=== PATIENT | female | born 1985 | race Caucasian/White ===

== ENCOUNTER 2017-01-22 09:06 | Emergency (ER) | payer OTHER | END 2017-01-22 12:40 | disposition home or self-care (01) | DX: R06.00 Dyspnea, unspecified (principal); R00.2 Palpitations; J45.909 Unspecified asthma, uncomplicated; G93.5 Compression of brain; Z87.891 Personal history of nicotine dependence ==

== ENCOUNTER 2019-08-27 15:25 | Outpatient (CLI) | payer OTHER | END 2019-08-27 15:26 | disposition critical access hospital (66) | LOC: EMS 15:25 | PROVIDERS: ATTEND Surgery | DX: R45.851 Suicidal ideations (principal) | CPT/HCPCS: A0425; A0429 ==

== ENCOUNTER 2019-08-27 15:45 | Emergency (ER) | payer OTHER ==
[2019-08-27 16:16] LABS: MUDS CUTOFF CONCENTRATIONS CUTOFF CONC BELOW:
[2019-08-27 16:25] LABS: BILIRUBIN,URINE NEGATIVE (NEGATIVE); GLUCOSE, URINE (UA) NEGATIVE (NEGATIVE); KETONES,URINE (UA) NEGATIVE (NEGATIVE); LEUKOCYTE ESTERASE, URINE NEGATIVE (NEGATIVE); NITRITE,URINE NEGATIVE (NEGATIVE); OCCULT BLOOD,URINE NEGATIVE (NEGATIVE); PH,URINE 5.5 PH (5.0-7.5); PROTEIN,URINE NEGATIVE (NEGATIVE); UROBILINOGEN,URINE 0.2 (NORMAL) E.U./dL (NORMAL)
[2019-08-27 16:28] LABS: CLARITY,URINE CLEAR (CLEAR); HCG UR QUAL NEGATIVE
[2019-08-27 16:37] LABS: BASOPHILS % (AUTO) 0.5 %; EOSINOPHILS # (AUTO) 0.1 10^3/uL (0.0-0.7); HGB - HEMOGLOBIN 14.1 g/dL (12.0-16.0); LYMPHOCYTES # (AUTO) 3.7 10^3/uL (1.5-3.5); LYMPHOCYTES % (AUTO) 42.3 %; MEAN CORPUSCULAR HEMOGLOBIN 30.5 pg (27.0-31.0); MEAN CORPUSCULAR HGB CONC 32.7 g/dL (32.0-36.0); MEAN CORPUSCULAR VOLUME 93.1 fL (81.0-99.0); MEAN PLATELET VOLUME 10.1 fL (7.9-10.8); MONOCYTES # (AUTO) 0.5 10^3/uL (0.0-1.0); MONOCYTES % (AUTO) 5.2 %; NEUTROPHILS # (AUTO) 4.5 10^3/uL (1.5-6.6); NEUTROPHILS % (AUTO) 50.8 %; PLT - PLATELET COUNT 319 10^3/uL (130-450); RED BLOOD COUNT 4.63 10^6/uL (4.20-5.40); RED CELL DISTRIBUTION WIDTH 12.4 % (12.0-15.0); WHITE BLOOD COUNT 8.8 x10^3/uL (4.8-10.8)
[2019-08-27 16:37] LABS: AMPHETAMINE SCREEN,URINE NEGATIVE (NEGATIVE); BENZODIAZEPINES SCREEN, URINE NEGATIVE (NEGATIVE); COCAINE SCREEN URINE NEGATIVE (NEGATIVE); METHADONE SCREEN, URINE NEGATIVE (NEGATIVE); METHAMPHETAMINES SCREEN, URINE NEGATIVE (NEGATIVE); OPIATE SCREEN, URINE NEGATIVE (NEGATIVE); OXYCODONE SCREEN, URINE NEGATIVE (NEGATIVE); PROPOXYPHENE SCREEN, URINE NEGATIVE (NEGATIVE); TRICYCLIC ANTIDEPRESSANT,URINE NEGATIVE (NEGATIVE)
--- NOTE | 2019-08-27 16:38 | ED Physician Documentation ---
PD HPI MHE - Stated complaint Stated Complaint: SI - Chief complaint Chief Complaint: MHE - History obtained from History obtained from: Patient - History of Present Illness Primary symptom: Suicide attempt (34-year-old woman with history of PTSD [place] going [place] the bridge today with intent to jump. She did have a suicide attempt a few years ago and was hospitalized in [place]. She denies alcohol or drug use. No other medical issues. Her supportive is at the bedside.) Review of Systems Ten Systems: 10 systems reviewed and negative Constitutional: reports: Reviewed and negative Throat: reports: Reviewed and negative Cardiac: reports: Reviewed and negative Respiratory: reports: Reviewed and negative PD PAST MEDICAL HISTORY - Past Medical History Past Medical History: Yes Cardiovascular: None Respiratory: Asthma - Past Surgical History Past Surgical History: Yes General: Appendectomy HEENT: Tonsil/Adenoidectomy - Present Medications Home Medications: Ambulatory Orders Medication Instructions Recorded Confirmed Albuterol 0 mg NEB Q6HR PRN 01/22/17 01/22/17 - Allergies Allergies/Adverse Reactions: Allergies Allergy/AdvReac Type Severity Reaction Status Date / Time No Known Drug Allergies Allergy Verified 01/22/17 11:57 - Social History Does the pt smoke?: No Smoking Status: Never smoker Does the pt drink ETOH?: No Does the pt have substance abuse?: No - Family History Family history: reports: Non contributory - Immunizations Immunizations are current?: No PD ED PE NORMAL - Vitals Vital signs reviewed: Yes - General General: Alert and oriented X 3, No acute distress - HEENT HEENT: PERRL, EOMI - Neck Neck: No bony TTP, No bruit - Cardiac Cardiac: RRR, No murmur - Respiratory Respiratory: No respiratory distress, Clear bilaterally - Abdomen Abdomen: Soft, Non tender - Back Back: No CVA TTP, No spinal TTP - Derm Derm: Normal color, Warm and dry - Extremities Extremities: No edema, No calf tenderness / cord - Neuro Neuro: Alert and oriented X 3, Normal speech Results - Vitals Vitals: Vital Signs - 24 hr 08/27/19 08/28/19 08/28/19 15:45 12:59 14:44 Temperature 36.7 C Heart Rate 63 97 91 Respiratory 16 18 18 Rate Blood Pressure 124/90 H 137/83 H 121/78 O2 Saturation 100 97 96 Oxygen O2 Source Room air - Labs Labs: Laboratory Tests 08/27/19 08/27/19 08/27/19 16:05 16:05 16:34 WBC 8.8 RBC 4.63 Hgb 14.1 Hct 43.1 MCV 93.1 MCH 30.5 MCHC 32.7 RDW 12.4 Plt Count 319 MPV 10.1 Neut # (Auto) 4.5 Lymph # (Auto) 3.7 H [place] # (Auto) 0.5 Eos # (Auto) 0.1 Baso # (Auto) 0.0 Absolute Nucleated RBC 0.00 Nucleated RBC % 0.0 Sodium Potassium Chloride Carbon Dioxide Anion Gap BUN Creatinine Estimated GFR (MDRD) Glucose Calcium Total Bilirubin AST ALT Alkaline Phosphatase Total Protein Albumin Globulin Albumin/Globulin Ratio Lipase TSH Urine Color YELLOW Urine Clarity CLEAR Urine pH 5.5 Ur Specific [place] 1.015 Urine Protein NEGATIVE Urine Glucose (UA) NEGATIVE Urine Ketones NEGATIVE Urine Occult Blood NEGATIVE Urine Nitrite NEGATIVE Urine Bilirubin NEGATIVE Urine Urobilinogen 0.2 (NORMAL) Ur Leukocyte Esterase NEGATIVE Ur Microscopic Review NOT INDICATED Urine Culture Comments NOT INDICATED Urine HCG, Qual NEGATIVE Salicylates Urine Opiates Screen NEGATIVE Ur Oxycodone Screen NEGATIVE Urine Methadone Screen NEGATIVE Ur Propoxyphene Screen NEGATIVE Acetaminophen Ur Barbiturates Screen NEGATIVE Ur Tricyclics Screen NEGATIVE Ur Phencyclidine Scrn NEGATIVE Ur Amphetamine Screen NEGATIVE U Methamphetamines Scrn NEGATIVE U Benzodiazepines Scrn NEGATIVE Urine Cocaine Screen NEGATIVE U Cannabinoids Screen NEGATIVE Ethyl Alcohol 08/27/19 08/27/19 16:34 16:34 WBC RBC Hgb Hct MCV MCH MCHC RDW Plt Count MPV Neut # (Auto) Lymph # (Auto) [place] # (Auto) Eos # (Auto) Baso # (Auto) Absolute Nucleated RBC Nucleated RBC % Sodium 139 Potassium 3.6 Chloride 101 Carbon Dioxide 25 Anion Gap 13.0 BUN 13 Creatinine 0.7 Estimated GFR (MDRD) 97 Glucose 83 Calcium 10.3 Total Bilirubin 0.5 AST 25 ALT 27 Alkaline Phosphatase 86 Total Protein 7.8 Albumin 5.0 Globulin 2.8 Albumin/Globulin Ratio 1.8 Lipase 27 TSH 0.19 L Urine Color Urine Clarity Urine pH Ur Specific [place] Urine Protein Urine Glucose (UA) Urine Ketones Urine Occult Blood Urine Nitrite Urine Bilirubin Urine Urobilinogen Ur Leukocyte Esterase Ur Microscopic Review Urine Culture Comments Urine HCG, Qual Salicylates < 6.0 Urine Opiates Screen Ur Oxycodone Screen Urine Methadone Screen Ur Propoxyphene Screen Acetaminophen < 10 L Ur Barbiturates Screen Ur Tricyclics Screen Ur Phencyclidine Scrn Ur Amphetamine Screen U Methamphetamines Scrn U Benzodiazepines Scrn Urine Cocaine Screen U Cannabinoids Screen Ethyl Alcohol < 5.0 PD MEDICAL DECISION MAKING - ED course ED course: She arrived after social work was able to evaluate her but seem fairly high risk given the gesture of going [place] the bridge with the intention. She was accepted by Dr. Nolan to [facility]. [place] were completed. She is stable for transport for psychiatric treatment. However I guess the next morning she changed her mind about admission. The social media sr strategy manager did not feel like she was a good joe voluntary anymore and dispatched the DCR. The DCR saw her, did not feel she was detainable and safe for outpatient treatment. Patient did not want to be voluntarily hospitalized. Departure - Departure Disposition: 01 Home, Self Care Clinical Impression: Depressive disorder Condition: Stable Record reviewed to determine appropriate education?: Yes Instructions: ED Depression Comments: Start with a new counselor as soon as possible. Return anytime if you feel like you are in danger or have suicidal thoughts. Discharge Date/Time: 08/28/19 15:14
[2019-08-27 16:55] LABS: ACETAMINOPHEN < 10 ug/mL (10-30); ALBUMIN/GLOBULIN RATIO 1.8 (1.0-2.2); ALKALINE PHOSPHATASE 86 IU/L (42-121); ALT ALANINE AMINOTRANSFERASE 27 IU/L (10-60); AST ASPARTATE AMINOTRANSFERASE 25 IU/L (10-42); BILIRUBIN,TOTAL 0.5 mg/dL (0.2-1.0); BUN - BLOOD UREA NITROGEN 13 mg/dL (6-20); CALCIUM 10.3 mg/dL (8.5-10.3); CARBON DIOXIDE - CO2 25 mmol/L (21-32); CHLORIDE 101 mmol/L (101-111); CREATININE 0.7 mg/dL (0.4-1.0); GFR - MDRD 97 (>89); GLUCOSE 83 mg/dL (70-100); LIPASE 27 U/L (22-51); SALICYLATE < 6.0 mg/dL; SODIUM 139 mmol/L (135-145); TOTAL PROTEIN 7.8 g/dL (6.7-8.2)
[2019-08-28 14:45] VITALS: BP 121/78
== END 2019-08-28 15:14 | disposition home or self-care (01) ==
LOC: EDUNIT# → ED 15:45
DX: F32.9 Major depressive disorder, single episode, unspecified (principal); R45.851 Suicidal ideations; F43.10 Post-traumatic stress disorder, unspecified
CPT/HCPCS: 36415; 80053; 80306; 80307; 80320; 80329; 81001; 81003; 81025; 83690; 84443; 85025; 87086; 99283; 99284

== ENCOUNTER 2019-09-05 03:54 | Outpatient (CLI) | payer OTHER | END 2019-09-05 03:55 | disposition critical access hospital (66) | LOC: EMS 03:54 | PROVIDERS: ATTEND Surgery | DX: R05 Cough (principal); R06.00 Dyspnea, unspecified | CPT/HCPCS: A0425; A0427 ==

== ENCOUNTER 2019-09-05 04:32 | Emergency (ER) | payer OTHER ==
[2019-09-05] MEDS ORDERED: IPRATROPIUM/ALBUTEROL 3 ML NEB INH STA (04:50)
[2019-09-05] MEDS ORDERED: BENZONATATE 100 MG CAPSULE PO STA (04:50)
[2019-09-05] MEDS ORDERED: CHERRY SYRUP 10 ML UDC PO ONE (04:50)
[2019-09-05] MEDS ORDERED: guaiFENesin/CODEINE 5 ML UDC PO STA (04:50)
[2019-09-05] MEDS ORDERED: DEXAMETHASONE 10 MG/ML VIAL PO STA (04:50)
--- NOTE | 2019-09-05 04:51 | ED Physician Documentation ---
PD HPI URI - Stated complaint Stated Complaint: SOA - Chief complaint Chief Complaint: Resp - History obtained from History obtained from: Patient, EMS - History of Present Illness Timing - onset: How many days ago (4) Timing duration: Days (4) Timing details: Gradual onset, Still present (worse the past 1-2 days, with worse asthma exac.) Associated symptoms: Fever, Nasal congestion, Sore throat, Dry cough, Dyspnea. No: NVD, Bilateral edema Contributing factors: COPD / asthma. No: Immunocompromised Improves by: Rest, MDI/nebulizer Worsened by: Activity Similar symptoms before: Diagnosis (asthma exac with URIs.) Recently seen: Not recently seen Review of Systems Constitutional: reports: Myalgias. denies: Fever Nose: reports: Congestion Respiratory: reports: Dyspnea, Cough, Wheezing GI: denies: Vomiting, Diarrhea Skin: denies: Rash PD PAST MEDICAL HISTORY - Past Medical History Cardiovascular: None Respiratory: Asthma - Past Surgical History Past Surgical History: Yes General: Appendectomy HEENT: Tonsil/Adenoidectomy - Present Medications Home Medications: Ambulatory Orders Medication Instructions Recorded Confirmed Albuterol 0 mg NEB Q6HR PRN 01/22/17 01/22/17 Benzonatate [Tessalon Perle] 100 - 200 mg PO TID PRN #30 capsule 09/05/19 Cetirizine [ZyrTEC] 1 PO DAILY 09/05/19 Fluticasone 44 Mcg [Flovent] 2 puffs INH BID 09/05/19 09/05/19 Fluticasone [Flonase] 09/05/19 Ipratropium [Atrovent] 0.5 mg INH Q6H #30 neb 09/05/19 dexAMETHasone [Decadron] 4 mg PO DAILY #9 tablet 09/05/19 guaiFENesin/CODEINE [Robitussin AC] 10 ml PO Q6H PRN #240 ml 09/05/19 - Allergies Allergies/Adverse Reactions: Allergies Allergy/AdvReac Type Severity Reaction Status Date / Time latex Allergy Unknown Verified 09/05/19 04:46 meperidine [From Demerol] Allergy Unknown Verified 09/05/19 04:46 adhesive AdvReac Unknown Verified 09/05/19 04:46 - Social History Does the pt smoke?: No Smoking Status: Never smoker Does the pt drink ETOH?: No Does the pt have substance abuse?: No - Immunizations Immunizations are current?: No PD ED PE NORMAL - Vitals Vital signs reviewed: Yes - General General: Alert and oriented X 3, Well developed/nourished - HEENT HEENT: Pharynx benign - Neck Neck: Supple, no meningeal sign, No adenopathy - Cardiac Cardiac: RRR, No murmur - Respiratory Respiratory: No: Clear bilaterally (wheezing but no coarse sounds) - Abdomen Abdomen: Soft, Non tender - Derm Derm: Normal color, No rash - Extremities Extremities: No tenderness to palpate, Normal ROM s pain, No edema, No calf tenderness / cord - Neuro Neuro: Alert and oriented X 3, No motor deficit, Normal speech Results - Vitals Vitals: Vital Signs - 24 hr 09/05/19 06:26 Temperature 36.7 C Heart Rate 66 Respiratory 18 Rate Blood Pressure 102/62 O2 Saturation 98 Oxygen O2 Source Room air PD MEDICAL DECISION MAKING - ED course Complexity details: re-evaluated patient (She felt better after nebulizer treatment and given medications for her cough and inflammation.), considered differential, d/w patient Departure - Departure Disposition: Home, Self Care Clinical Impression: Exacerbation of asthma Qualifiers: Asthma severity: mild Asthma persistence: intermittent Qualified Code(s): J45.21 - Mild intermittent asthma with (acute) exacerbation Upper respiratory infection Qualifiers: URI type: unspecified URI Qualified Code(s): J06.9 - Acute upper respiratory infection, unspecified Condition: Stable Record reviewed to determine appropriate education?: Yes Instructions: ED URI Viral W Wheezing Follow-Up: DANILO DICK MD [Primary Care Provider] - Prescriptions: Benzonatate [Tessalon Perle] 100 - 200 mg PO TID PRN #30 capsule PRN Reason: Cough dexAMETHasone [Decadron] 4 mg PO DAILY #9 tablet guaiFENesin/CODEINE [Robitussin AC] 10 ml PO Q6H PRN #240 ml PRN Reason: Cough Ipratropium [Atrovent] 0.5 mg INH Q6H #30 neb Comments: Stay well-hydrated. Tylenol or ibuprofen if needed for fevers and pains. Use Decadron steroid as directed with 2 tablets daily for 3 days then 1 tablet daily for 3 days. Continue your albuterol nebulizer or inhaler at home 4 times a day for 7 to 10 days and then extra times as needed. You can add ipratropium (Atrovent) 2 or 3 times daily to that if needed for improved effectiveness. Tessalon if needed for cough. Add codeine cough medicine if needed. Recheck if not improving well over the next few days return sooner if worse. Discharge Date/Time: 09/05/19 06:51
[2019-09-05 06:26] VITALS: BP 102/62
== END 2019-09-05 06:51 | disposition home or self-care (01) ==
LOC: EDUNIT# → ED 04:32
DX: J45.21 Mild intermittent asthma with (acute) exacerbation (principal); J06.9 Acute upper respiratory infection, unspecified
CPT/HCPCS: 94640; 99284; A9270

== ENCOUNTER 2019-12-10 12:37 | Outpatient (CLI) | payer OTHER | END 2019-12-10 12:38 | disposition EMS.NT | LOC: EMS 12:37 | PROVIDERS: ATTEND Surgery | DX: T23.231A Burn of second degree of multiple right fingers (nail), not including thumb, initial encounter (principal); X10.2XXA Contact with fats and cooking oils, initial encounter; Y93.G3 Activity, cooking and baking; Y92.000 Kitchen of unspecified non-institutional (private) residence as the place of occurrence of the external cause ==

== ENCOUNTER 2020-06-22 20:09 | Emergency (ER) | payer OTHER ==
[2020-06-22 20:46] LABS: BASOPHILS # (AUTO) 0.1 10^3/uL (0.0-0.1); BASOPHILS % (AUTO) 0.5 %; EOSINOPHILS # (AUTO) 0.2 10^3/uL (0.0-0.7); EOSINOPHILS % (AUTO) 1.6 %; HGB - HEMOGLOBIN 12.9 g/dL (12.0-16.0); LYMPHOCYTES # (AUTO) 3.8 10^3/uL (1.5-3.5); LYMPHOCYTES % (AUTO) 39.2 %; MEAN CORPUSCULAR HEMOGLOBIN 31.2 pg (27.0-31.0); MEAN CORPUSCULAR HGB CONC 33.3 g/dL (32.0-36.0); MEAN CORPUSCULAR VOLUME 93.7 fL (81.0-99.0); MEAN PLATELET VOLUME 10.5 fL (7.9-10.8); MONOCYTES # (AUTO) 0.6 10^3/uL (0.0-1.0); MONOCYTES % (AUTO) 6.5 %; PLT - PLATELET COUNT 334 10^3/uL (130-450); RED BLOOD COUNT 4.13 10^6/uL (4.20-5.40); RED CELL DISTRIBUTION WIDTH 12.5 % (12.0-15.0); WHITE BLOOD COUNT 9.6 x10^3/uL (4.8-10.8)
[2020-06-22 20:57] LABS: BILIRUBIN,URINE NEGATIVE (NEGATIVE); GLUCOSE, URINE (UA) NEGATIVE (NEGATIVE); KETONES,URINE (UA) NEGATIVE (NEGATIVE); LEUKOCYTE ESTERASE, URINE NEGATIVE (NEGATIVE); NITRITE,URINE NEGATIVE (NEGATIVE); OCCULT BLOOD,URINE TRACE-INTA (NEGATIVE); PH,URINE 6.5 PH (5.0-7.5); PROTEIN,URINE NEGATIVE (NEGATIVE); UROBILINOGEN,URINE 0.2 (NORMAL) E.U./dL (NORMAL)
[2020-06-22 20:59] LABS: CLARITY,URINE CLEAR (CLEAR); HCG UR QUAL NEGATIVE
[2020-06-22 21:00] LABS: ALBUMIN 4.5 g/dL (3.2-5.5); ALBUMIN/GLOBULIN RATIO 1.8 (1.0-2.2); BILIRUBIN,TOTAL 0.5 mg/dL (0.2-1.0); CALCIUM 9.2 mg/dL (8.5-10.3); CREATININE 0.8 mg/dL (0.4-1.0)
--- NOTE | 2020-06-22 21:08 | ED Physician Documentation ---
PD HPI ABD PAIN - Stated complaint Stated Complaint: ABD PX - Chief complaint Chief Complaint: Abd Pain - History obtained from History obtained from: Patient - History of Present Illness Timing - onset: How many weeks ago ("a little over a week ago" (per patient)) Timing - details: Gradual onset, Constant Pain level now: 6 Quality: Pain Location: RLQ Radiation: Other (no radiation) Improved by: Laying still Worsened by: Moving, Position, Palpation Associated symptoms: No: Fever, Nausea, Vomiting, Diarrhea, Constipation Similar symptoms before: Has not had sx before Recently seen: Not recently seen Review of Systems Constitutional: denies: Fever, Chills, Sweats Cardiac: reports: Reviewed and negative Respiratory: reports: Reviewed and negative GI: reports: Abdominal Pain. denies: Nausea, Vomiting, Constipation, Diarrhea : denies: Dysuria, Frequency, Now EGA Musculoskeletal: denies: Back pain PD PAST MEDICAL HISTORY - Past Medical History Cardiovascular: None Respiratory: Asthma - Past Surgical History Past Surgical History: Yes General: Appendectomy HEENT: Tonsil/Adenoidectomy - Present Medications Home Medications: Ambulatory Orders Medication Instructions Recorded Confirmed Albuterol 0 mg NEB Q6HR PRN 01/22/17 01/22/17 Benzonatate [Tessalon Perle] 100 - 200 mg PO TID PRN #30 capsule 09/05/19 Cetirizine [ZyrTEC] 1 PO DAILY 09/05/19 Fluticasone 44 Mcg [Flovent] 2 puffs INH BID 09/05/19 09/05/19 Fluticasone [Flonase] 09/05/19 Ipratropium [Atrovent] 0.5 mg INH Q6H #30 neb 09/05/19 dexAMETHasone [Decadron] 4 mg PO DAILY #9 tablet 09/05/19 guaiFENesin/CODEINE [Robitussin AC] 10 ml PO Q6H PRN #240 ml 09/05/19 - Allergies Allergies/Adverse Reactions: Allergies Allergy/AdvReac Type Severity Reaction Status Date / Time latex Allergy Unknown Verified 06/22/20 20:22 meperidine [From Demerol] Allergy Unknown Verified 06/22/20 20:22 adhesive AdvReac Unknown Verified 06/22/20 20:22 - Social History Does the pt smoke?: No Smoking Status: Never smoker Does the pt drink ETOH?: No Does the pt have substance abuse?: No - Immunizations Immunizations are current?: No PD ED PE NORMAL - Vitals Vital signs reviewed: Yes - General General: Alert and oriented X 3, No acute distress, Well developed/nourished - Cardiac Cardiac: RRR, No murmur - Respiratory Respiratory: No respiratory distress, Clear bilaterally - Abdomen Abdomen: Soft, Non distended PD ED PE EXPANDED - Abdomen Abdomen: Tender to palpation, RLQ Results - Vitals Vitals: Vital Signs - 24 hr 06/22/20 06/22/20 20:15 22:30 Temperature 36.8 C 36.8 C Heart Rate 81 74 Respiratory 17 16 Rate Blood Pressure 117/81 H 101/78 O2 Saturation 99 98 Oxygen O2 Source Room air - Labs Labs: Laboratory Tests 06/22/20 06/22/20 06/22/20 20:35 20:35 20:35 WBC 9.6 RBC 4.13 L Hgb 12.9 Hct 38.7 MCV 93.7 MCH 31.2 H MCHC 33.3 RDW 12.5 Plt Count 334 MPV 10.5 Neut # (Auto) 5.0 Lymph # (Auto) 3.8 H [place] # (Auto) 0.6 Eos # (Auto) 0.2 Baso # (Auto) 0.1 Absolute Nucleated RBC 0.00 Nucleated RBC % 0.0 Sodium 138 Potassium 3.4 L Chloride 100 L Carbon Dioxide 29 Anion Gap 9.0 BUN 15 Creatinine 0.8 Estimated GFR (MDRD) 83 L Glucose 87 Calcium 9.2 Total Bilirubin 0.5 AST 17 ALT 16 Alkaline Phosphatase 72 Total Protein 7.0 Albumin 4.5 Globulin 2.5 Albumin/Globulin Ratio 1.8 Lipase 29 Urine Color YELLOW Urine Clarity CLEAR Urine pH 6.5 Ur Specific [place] 1.020 Urine Protein NEGATIVE Urine Glucose (UA) NEGATIVE Urine Ketones NEGATIVE Urine Occult Blood TRACE-INTA Urine Nitrite NEGATIVE Urine Bilirubin NEGATIVE Urine Urobilinogen 0.2 (NORMAL) Ur Leukocyte Esterase NEGATIVE Ur Microscopic Review NOT INDICATED Urine Culture Comments NOT INDICATED Urine HCG, Qual NEGATIVE - Rads (name of study) pelvic/TV US Radiology: Prelim report reviewed, See rad report CT A/P with IV contrast Radiology: Prelim report reviewed, See rad report PD MEDICAL DECISION MAKING - ED course Complexity details: reviewed results, re-evaluated patient, considered differential, d/w patient Departure - Departure Disposition: 01 Home, Self Care Clinical Impression: Abdominal pain, Ileus Condition: Good Instructions: Ileus Comments: Follow up with your primary care provider, next available appointment for reevaluation. Return to the emergency department at any time for worsening symptoms.
[2020-06-22] MEDS ORDERED: KETOROLAC 30 MG/ML VIAL IVP STA (21:29)
[2020-06-23] MEDS ORDERED: IOVERSOL 320 100 ML VIAL IVP ONE ×2 (00:04→00:51)
[2020-06-23] MEDS ORDERED: ACETAMINOPHEN 325 MG TABLET PO STA (01:55)
[2020-06-23 02:15] VITALS: BP 110/72
--- NOTE | 2020-06-23 09:17 | CT Report ---
PROCEDURE: Abdomen/Pelvis W INDICATIONS: RLQ, right inguinal pain CONTRAST: IV CONTRAST: Optiray 320 ml: 100 PO CONTRAST: *NO PO CONTRAST TECHNIQUE: After the administration of nonionic IV contrast, 5 mm thick sections acquired from the diaphragms to the symphysis. 5 mm thick coronal and sagittal reformats were acquired. For radiation dose reducti on, the following was used: automated exposure control, adjustment of mA and/or kV according to shavon ent size. COMPARISON: Correlation is made with the accompanying pelvic ultrasound, 06/22/2020. Correlation is a lso made with the prior pelvis plain films dated 07/27/2019. FINDINGS: Image quality: Excellent. ABDOMEN: Lung bases: Lung bases are clear. Heart size is normal. Solid organs: Liver and spleen are normal in size and enhancement. Gallbladder wall does not appear thickened. Biliary system is non dilated. Pancreas enhances normally. No adrenal nodules. Kidn eys demonstrate normal size and enhancement, without hydronephrosis. Peritoneum and bowel: In this patient with this given history, scrutiny is given to the right lower quadrant and the appendix. The appendix is not definitely seen. No focal right lower quadrant inflamm atory changes are seen. There is a moderate amount of stool seen within the colon. Forming stool can be seen within several d istal small bowel loops. Bowel loops demonstrate normal wall thickness and caliber. No free fluid or air. Nodes and vessels: No retroperitoneal or mesenteric adenopathy by size criteria. Aorta and inferior vena cava are normal in size. Miscellaneous: A mild fat-containing periumbilical hernia is seen. PELVIS: Genitourinary: Bladder wall thickness is normal. The uterus demonstrates an unremarkable appearance for age. No adnexal masses are seen. Cystic change is seen of the ovaries, which is considered to be within physiologic limits. Miscellaneous: No inguinal hernias or adenopathy. Bones: No suspicious bony lesions. No vertebral body compression fractures. Mild levoconvex scolio tic curvature is seen. IMPRESSION: No appendix can be seen, either normal or abnormal. No focal right lower quadrant inflam matory changes are seen. There is a moderate amount of stool seen within the colon. Please correlate with clinical constipatio n. There is also forming stool seen within this several distal small bowel loops. This is highly sug gestive of stagnant small bowel contents. No findings of bowel obstruction are seen, however. Incidental note is made of: Levoconvex sclerotic curvature Fat-containing peribuccal hernia Reviewed by: Waldemar Buchanan MD on 06/23/2020 8:16 AM [facility] Approved by: Waldemar Buchanan MD on 06/23/2020 8:16 AM [facility] Station ID: [id number]
--- NOTE | 2020-06-23 09:20 | Ultrasound Report ---
PROCEDURE: Pelvic w/Transvag+Doppler Comp INDICATIONS: pelvic pain, R TECHNIQUE: Real-time scanning was performed of the pelvic organs, with image documentation. Additional endovagi nal scanning was necessary due to incomplete visualization of the adnexal and endometrial structures by transabdominal scanning. COMPARISON: Correlation is made with the subsequently performed abdomen and pelvis CT, 06/23/2020 FINDINGS: Transabdominal scanning: Limited scanning through the kidneys shows no hydronephrosis. There is a m ild amount of free pelvic fluid seen, which is considered to be within physiologic limits. Endovaginal scanning: Uterus: Uterus is normal in size at 7.9 x 3.2 x 4.9 cm. The endometrium measures 10 mm in combined thickness. Ovaries: The right ovary measures 3.5 x 2.2 x 3 cm and the left ovary measures 2.8 x 2 x 1.8 cm. No ovarian abnormalities are seen, with less than 12 follicles seen on each side. Normal-appearing cysti c follicles are seen involving each ovary, which are considered to be within physiologic limits. No adnexal masses are seen. Normal-appearing arterial flow is confirmed to each ovary. The technologist noted pelvic pain on the right, when pressure was applied to the left pelvis. IMPRESSION: Pelvic ultrasound within normal limits, with a physiologic amount of free fluid seen. Negative for ovarian torsion. Note: No significant discrepancy from the preliminary report. Reviewed by: Waldemar Buchanan MD on 06/23/2020 8:18 AM [facility] Approved by: Waldemar Buchanan MD on 06/23/2020 8:18 AM [facility] Station ID: [id number]
== END 2020-06-23 02:10 | disposition home or self-care (01) ==
LOC: ED 20:09
DX: K56.7 Ileus, unspecified (principal); K42.9 Umbilical hernia without obstruction or gangrene; Z90.49 Acquired absence of other specified parts of digestive tract
CPT/HCPCS: 36415; 74177; 76830; 76856; 80053; 81003; 81025; 83690; 85025; 93975; 96374; 99283; 99284; A9270; Q9967; 81001; 87086

== ENCOUNTER 2020-08-05 13:01 | Emergency (ER) | payer OTHER ==
--- NOTE | 2020-08-05 13:27 | ED Physician Documentation ---
PD HPI UPPER EXT INJURY - Stated complaint Stated Complaint: LT FINGER INJ - Chief complaint Chief Complaint: Ext Problem - History obtained from History obtained from: Patient - Additonal information Additional information: Right-handed woman hit her left ring finger with a bow staff well exercising in her yard 2 weeks ago and has persistent pain mostly at the PIP and along the radial side of the left fourth finger. Review of Systems Constitutional: reports: Reviewed and negative Throat: reports: Reviewed and negative Cardiac: reports: Reviewed and negative PD PAST MEDICAL HISTORY - Past Medical History Cardiovascular: None Respiratory: Asthma - Past Surgical History Past Surgical History: Yes General: Appendectomy HEENT: Tonsil/Adenoidectomy - Present Medications Home Medications: Ambulatory Orders Medication Instructions Recorded Confirmed Albuterol 0 mg NEB Q6HR PRN 01/22/17 01/22/17 Benzonatate [Tessalon Perle] 100 - 200 mg PO TID PRN #30 capsule 09/05/19 Cetirizine [ZyrTEC] 1 PO DAILY 09/05/19 Fluticasone 44 Mcg [Flovent] 2 puffs INH BID 09/05/19 09/05/19 Fluticasone [Flonase] 09/05/19 Ipratropium [Atrovent] 0.5 mg INH Q6H #30 neb 09/05/19 dexAMETHasone [Decadron] 4 mg PO DAILY #9 tablet 09/05/19 guaiFENesin/CODEINE [Robitussin AC] 10 ml PO Q6H PRN #240 ml 09/05/19 - Allergies Allergies/Adverse Reactions: Allergies Allergy/AdvReac Type Severity Reaction Status Date / Time latex Allergy Unknown Verified 08/05/20 13:17 meperidine [From Demerol] Allergy Unknown Verified 08/05/20 13:17 adhesive AdvReac Unknown Verified 08/05/20 13:17 - Social History Does the pt smoke?: No Smoking Status: Never smoker Does the pt drink ETOH?: No Does the pt have substance abuse?: No - Immunizations Immunizations are current?: No PD ED PE NORMAL - Vitals Vital signs reviewed: Yes - General General: Alert and oriented X 3, No acute distress - Extremities Extremities: Other (She is tender along the radial side of the right PIP and pain with inversion at that level. Mild swelling there. No deformity. NVI at the tip.) - Neuro Neuro: Alert and oriented X 3, Normal speech Results - Vitals Vitals: Vital Signs - 24 hr 08/05/20 13:14 Temperature 37.1 C Heart Rate 72 Respiratory 16 Rate Blood Pressure 122/40 L O2 Saturation 99 Oxygen O2 Source Room air - Rads (name of study) L 4th finger Radiology: EMP read contemporaneously (Nondisp frx prox part mid phalanx.) Procedures - Splint (location) L 4th finger Splint applied by: Physician Type of splint: Metal foam finger splint Other: Patient tolerated well, No complications, Neurovascular intact Departure - Departure Disposition: 01 Home, Self Care Clinical Impression: Finger fracture, left Qualifiers: Encounter type: initial encounter Finger: ring finger Fracture type: closed Phalanx: middle Fracture alignment: nondisplaced Qualified Code(s): S62.655A - Nondisplaced fracture of middle phalanx of left ring finger, initial encounter for closed fracture Condition: Good Record reviewed to determine appropriate education?: Yes Instructions: ED Fx Finger Closed Comments: You have a small avulsion fracture of the middle phalanx of the left ring finger. This should heal just fine with the splinting. Return if worsening.
--- NOTE | 2020-08-05 14:29 | XRAY Report ---
PROCEDURE: Finger(s) LT INDICATIONS: left 4th finger inj TECHNIQUE: AP hand, 3 views of the left fourth/ring finger(s) acquired. COMPARISON: None. FINDINGS: Bones: There is a very small nondisplaced fracture involving the volar base of the fourth finger mid dle phalanx with overlying soft tissue edema. No other fractures or dislocations. No suspicious bony lesions. Soft tissues: No suspicious soft tissue calcifications. IMPRESSION: Nondisplaced fracture involving the volar base of the left fourth finger middle phalanx. Reviewed by: Michael Hinson MD on 08/05/2020 1:27 PM [facility] Approved by: Michael Hinson MD on 08/05/2020 1:27 PM [facility] Station ID: [id number]
[2020-08-05 15:00] VITALS: BP 119/74
== END 2020-08-05 15:10 | disposition home or self-care (01) ==
LOC: ED 13:01
DX: S62.655A Nondisplaced fracture of middle phalanx of left ring finger, initial encounter for closed fracture (principal); W22.8XXA Striking against or struck by other objects, initial encounter; Y93.A9 Activity, other involving cardiorespiratory exercise; Y92.007 Garden or yard of unspecified non-institutional (private) residence as the place of occurrence of the external cause
CPT/HCPCS: 73140; 99283

== ENCOUNTER 2020-08-14 12:43 | Emergency (ER) | payer OTHER ==
[2020-08-14 13:20] LABS: BILIRUBIN,URINE NEGATIVE (NEGATIVE); GLUCOSE, URINE (UA) NEGATIVE (NEGATIVE); KETONES,URINE (UA) NEGATIVE (NEGATIVE); LEUKOCYTE ESTERASE, URINE NEGATIVE (NEGATIVE); NITRITE,URINE NEGATIVE (NEGATIVE); OCCULT BLOOD,URINE NEGATIVE (NEGATIVE); PH,URINE 7.5 PH (5.0-7.5); PROTEIN,URINE NEGATIVE (NEGATIVE); UROBILINOGEN,URINE 0.2 (NORMAL) E.U./dL (NORMAL)
[2020-08-14 13:23] LABS: CLARITY,URINE CLEAR (CLEAR); HCG UR QUAL NEGATIVE
[2020-08-14] MEDS ORDERED: ONDANSETRON 4 MG/2 ML VIAL IVP STA (13:37)
--- NOTE | 2020-08-14 13:39 | ED Physician Documentation ---
History of Present Illness - Stated complaint Stated Complaint: DIZZY/NAUSEA - Chief complaint Chief Complaint: Neuro - Additonal information Additional information: 35-year-old female presents the emergency department with chief complaint of feeling off balance, dizzy and with a headache. She reports that this occurred last night after she took 3 sips of red wine. She denies any vomiting but has been persistently nauseated. She also reports some mild right-sided abdominal pain which is new for her. She does have a history of a known Chiari malformation that was diagnosed a few years ago in [place]. At the time of initial evaluation she had had persistent headaches and nausea. She does report to me that they did recommend surgery for the Chiari malformation but she declined it at that time. She denies that she has headaches right now that are similar to that previous presentation. She has no falls or trauma. Takes only Zyrtec as a medication. She did have a history of heavy alcohol use but quit drinking about 12 years ago. She now only occasionally will have a sip of beer or wine once or twice a month Review of Systems Constitutional: denies: Fever, Chills Eyes: denies: Loss of vision, Photophobia Ears: denies: Loss of hearing, Ear pain, Drainage/discharge, Tinnitus/ringing Nose: denies: Rhinorrhea / runny nose, Congestion Throat: denies: Dental pain / toothache, Oral lesions / sores, Sore throat, Swollen tonsils Cardiac: denies: Chest pain / pressure, Palpitations, Calf pain Respiratory: denies: Dyspnea, Cough GI: reports: Nausea. denies: Abdominal Pain, Abdominal Swelling : reports: Reviewed and negative Skin: reports: Reviewed and negative Musculoskeletal: reports: Reviewed and negative Neurologic: reports: Headache, Other (nausea and vertigo). denies: Generalized weakness, Numbness, Difficulty speaking, Near syncope, Syncope, Seizure, Confused, LOC PD PAST MEDICAL HISTORY - Past Medical History Cardiovascular: None Respiratory: Asthma - Past Surgical History Past Surgical History: Yes General: Appendectomy HEENT: Tonsil/Adenoidectomy - Present Medications Home Medications: Ambulatory Orders Medication Instructions Recorded Confirmed Albuterol 0 mg NEB Q6HR PRN 01/22/17 01/22/17 Benzonatate [Tessalon Perle] 100 - 200 mg PO TID PRN #30 capsule 09/05/19 Cetirizine [ZyrTEC] 1 PO DAILY 09/05/19 Fluticasone 44 Mcg [Flovent] 2 puffs INH BID 09/05/19 09/05/19 Fluticasone [Flonase] 09/05/19 Ipratropium [Atrovent] 0.5 mg INH Q6H #30 neb 09/05/19 dexAMETHasone [Decadron] 4 mg PO DAILY #9 tablet 09/05/19 guaiFENesin/CODEINE [Robitussin AC] 10 ml PO Q6H PRN #240 ml 09/05/19 Ondansetron Odt [Zofran] 4 mg TL Q6H PRN #10 tablet 08/14/20 - Allergies Allergies/Adverse Reactions: Allergies Allergy/AdvReac Type Severity Reaction Status Date / Time latex Allergy Unknown Verified 08/14/20 12:52 meperidine [From Demerol] Allergy Unknown Verified 08/14/20 12:52 adhesive AdvReac Unknown Verified 08/14/20 12:52 - Social History Does the pt smoke?: No Smoking Status: Never smoker Does the pt drink ETOH?: No Does the pt have substance abuse?: No - Immunizations Immunizations are current?: No PD ED PE EXPANDED - General General: Alert, No acute distress, Well developed/nourished - HEENT HEENT: Atraumatic, PERRL, EOMI, Ears normal, Moist mucous membranes, Pharynx normal - Eyes Eyes: PERRL, Other (no nystagmus) - Neck Neck: Supple w/out meningeal sx. No: Adenopathy - Cardiac Cardiac: Regular Rate, Regular Rhythm, Radial strong equal, Pedal strong equal, Cap refill < 2 sec. No: Murmur Present - Respiratory Respiratory: Clear to ausultation nathan. No: Distress, Labored - Abdomen Abdomen: Normal Bowel sounds, Tender to palpation, RUQ - Derm Derm: Normal color. No: Rash - Extremities Extremities: Normal - Neuro Neuro: Alert and Oriented X 3, CNII-XII intact, PERRL, Normal finger nose, Normal speech. No: Nystagmus, Cerebellar nl (off balance with heel toe; the rapidalternating, finger nose and heel schreiber were preserved) Results - Vitals Vitals: Vital Signs - 24 hr 08/14/20 12:47 Temperature 37 C Heart Rate 82 Respiratory 18 Rate Blood Pressure 135/97 H O2 Saturation 100 Oxygen O2 Source Room air - Labs Labs: Laboratory Tests 08/14/20 08/14/20 08/14/20 13:15 13:28 13:28 WBC 6.6 RBC 4.08 L Hgb 12.5 Hct 38.0 MCV 93.1 MCH 30.6 MCHC 32.9 RDW 12.5 Plt Count 305 MPV 10.6 Neut # (Auto) 2.8 Lymph # (Auto) 3.2 Wharton # (Auto) 0.5 Eos # (Auto) 0.1 Baso # (Auto) 0.0 Absolute Nucleated RBC 0.00 Nucleated RBC % 0.0 VBG Total Hgb VBG Oxyhemoglobin VBG Carboxyhemoglobin VBG Methemoglobin Sodium 140 Potassium 3.6 Chloride 99 L Carbon Dioxide 28 Anion Gap 13.0 BUN 7 Creatinine 0.6 Estimated GFR (MDRD) 115 Glucose 96 Calcium 8.9 Total Bilirubin 0.5 AST 16 ALT 14 Alkaline Phosphatase 59 Total Protein 6.6 L Albumin 4.3 Globulin 2.3 Albumin/Globulin Ratio 1.9 Lipase 29 Urine Color YELLOW Urine Clarity CLEAR Urine pH 7.5 Ur Specific Virgie 1.020 Urine Protein NEGATIVE Urine Glucose (UA) NEGATIVE Urine Ketones NEGATIVE Urine Occult Blood NEGATIVE Urine Nitrite NEGATIVE Urine Bilirubin NEGATIVE Urine Urobilinogen 0.2 (NORMAL) Ur Leukocyte Esterase NEGATIVE Ur Microscopic Review NOT INDICATED Urine Culture Comments NOT INDICATED Urine HCG, Qual NEGATIVE Ethyl Alcohol < 5.0 08/14/20 14:49 WBC RBC Hgb Hct MCV MCH MCHC RDW Plt Count MPV Neut # (Auto) Lymph # (Auto) [place]arton # (Auto) Eos # (Auto) Baso # (Auto) Absolute Nucleated RBC Nucleated RBC % VBG Total Hgb 13.1 VBG Oxyhemoglobin 48 L VBG Carboxyhemoglobin 1.6 H VBG Methemoglobin 0.3 Sodium Potassium Chloride Carbon Dioxide Anion Gap BUN Creatinine Estimated GFR (MDRD) Glucose Calcium Total Bilirubin AST ALT Alkaline Phosphatase Total Protein Albumin Globulin Albumin/Globulin Ratio Lipase Urine Color Urine Clarity Urine pH Ur Specific Virgie Urine Protein Urine Glucose (UA) Urine Ketones Urine Occult Blood Urine Nitrite Urine Bilirubin Urine Urobilinogen Ur Leukocyte Esterase Ur Microscopic Review Urine Culture Comments Urine HCG, Qual Ethyl Alcohol - Rads (name of study) CT head Radiology: Final report received (No acute intracranial process. Chiari I malformation) PD MEDICAL DECISION MAKING - ED course Complexity details: reviewed results, re-evaluated patient, considered differential, d/w patient, d/w family ED course: 35-year-old female presents to the emergency department with chief complaint of feeling intoxicated dizzy hung over and with a mild headache. She reports having 3 sips of wine last night. She does have a history of a Chiari I malformation. Today on exam her gait was slightly off balance but there were no focal neuro deficits. Lab work was essentially unremarkable. Urine showed no signs of infection. Head CT did confirm the Chiari I malformation without any other significant findings. Alcohol level was not detectable here in the emerg ency department. On reevaluation with the patient she reported to me that her mom had gone to her house and smelled a lot of gas. The patient states that a few weeks ago her replaced the water heater. She had called the fire department out because she thought she smelled gas but the fire department assured her that there was no leak. At this time we will proceed with carbon monoxide level. If not elevated patient will be stable for discharge home. I have advised her not to return to her home residence however until she is sure that there is no further gas leak at her house and to have the carbon monoxide detectors changed or batteries replaced 1520: Carbon monoxide level is 1.5. This is not high enough to significantly contribute to her symptoms. I have reevaluated the patient she feels markedly improved following the liter of fluids though she remains somewhat nauseated. I will write a prescription for Zofran. Advised to remain away from her home until she can ensure that there is no gas leak and the carbon monoxide detectors are working properly. Emergent return precautions discussed Departure - Departure Disposition: 01 Home, Self Care Clinical Impression: Dizzy, Chiari I malformation Condition: Stable Record reviewed to determine appropriate education?: Yes Prescriptions: Ondansetron Odt [Zofran] 4 mg TL Q6H PRN #10 tablet PRN Reason: Nausea / Vomiting Comments: Altagracia I hope that you are feeling better today. Your labs are all essentially normal. There is no urinary tract infection. Your alcohol level was not elevated. The CT scan does show a persistence of your Chiari I malformation. I am not sure the cause of your dizziness today. It could be the Chiari malformation and I do advise you to continue follow-up with neurosurgery at [place]. However because your mom and you have been smelling gas at your house propane leak could also be contributing to your symptoms even though your carbon monoxide level was not elevated. Please do not return home until you ensure that there is no propane leak at your house and that your carbon monoxide monitors are working properly. Please return to the emergency department if you have any fainting episodes suddenly severe headache uncontrolled vomiting. I have prescribed a limited amount of Zofran to help with your nausea at home
[2020-08-14 13:40] LABS: BASOPHILS % (AUTO) 0.6 %; EOSINOPHILS # (AUTO) 0.1 10^3/uL (0.0-0.7); HGB - HEMOGLOBIN 12.5 g/dL (12.0-16.0); LYMPHOCYTES # (AUTO) 3.2 10^3/uL (1.5-3.5); LYMPHOCYTES % (AUTO) 47.9 %; MEAN CORPUSCULAR HEMOGLOBIN 30.6 pg (27.0-31.0); MEAN CORPUSCULAR HGB CONC 32.9 g/dL (32.0-36.0); MEAN CORPUSCULAR VOLUME 93.1 fL (81.0-99.0); MEAN PLATELET VOLUME 10.6 fL (7.9-10.8); MONOCYTES # (AUTO) 0.5 10^3/uL (0.0-1.0); NEUTROPHILS # (AUTO) 2.8 10^3/uL (1.5-6.6); NEUTROPHILS % (AUTO) 42.3 %; PLT - PLATELET COUNT 305 10^3/uL (130-450); RED BLOOD COUNT 4.08 10^6/uL (4.20-5.40); RED CELL DISTRIBUTION WIDTH 12.5 % (12.0-15.0); WHITE BLOOD COUNT 6.6 x10^3/uL (4.8-10.8)
[2020-08-14 13:49] LABS: ALBUMIN 4.3 g/dL (3.2-5.5); ALBUMIN/GLOBULIN RATIO 1.9 (1.0-2.2); ALKALINE PHOSPHATASE 59 IU/L (42-121); ALT ALANINE AMINOTRANSFERASE 14 IU/L (10-60); AST ASPARTATE AMINOTRANSFERASE 16 IU/L (10-42); BILIRUBIN,TOTAL 0.5 mg/dL (0.2-1.0); BUN - BLOOD UREA NITROGEN 7 mg/dL (6-20); CALCIUM 8.9 mg/dL (8.5-10.3); CARBON DIOXIDE - CO2 28 mmol/L (21-32); CHLORIDE 99 mmol/L (101-111); CREATININE 0.6 mg/dL (0.4-1.0); GLUCOSE 96 mg/dL (70-100); LIPASE 29 U/L (22-51); SODIUM 140 mmol/L (135-145); TOTAL PROTEIN 6.6 g/dL (6.7-8.2)
--- NOTE | 2020-08-14 14:03 | CT Report ---
PROCEDURE: HEAD WO INDICATIONS: headache, off balance, chiari malformation TECHNIQUE: Noncontrast 4.5 mm thick angled axial sections acquired from the foramen magnum to the vertex. For r adiation dose reduction, the following was used: automated exposure control, adjustment of mA and/or kV according to patient size. COMPARISON: None. FINDINGS: Image quality: Excellent. CSF spaces: Basal cisterns are patent. No extra-axial fluid collections. Ventricles are normal in size and shape. Brain: No midline shift. No intracranial masses or hemorrhage. Haynes-white matter interface is norm al. Cerebellar tonsils project below the basion-opisthion line compatible with Chiari I malformation. Skull and face: Calvarium and visualized facial bones are intact, without suspicious lesions. Sinuses: Visualized sinuses and mastoids are clear. IMPRESSION: 1. No acute intracranial disease process. 2. Chiari I malformation. Reviewed by: Maria Luisa Green MD, PhD on 08/14/2020 2:02 PM PST Approved by: Maria Luisa Green MD, PhD on 08/14/2020 2:02 PM PST Station ID: [id number]
[2020-08-14] MEDS ORDERED: SODIUM CHLORIDE 0.9% 1,000 ML IV STA (14:06)
[2020-08-14 15:39] VITALS: BP 106/55
== END 2020-08-14 15:40 | disposition home or self-care (01) ==
LOC: ED 12:43
DX: R42 Dizziness and giddiness (principal); G93.5 Compression of brain; R26.89 Other abnormalities of gait and mobility; R11.0 Nausea; R10.11 Right upper quadrant pain
CPT/HCPCS: 36415; 70450; 80053; 80320; 81001; 81003; 81025; 82375; 83690; 85025; 87086; 96374; 99284

== ENCOUNTER 2021-02-22 13:50 | Emergency (ER) | payer OTHER ==
[2021-02-22] MEDS ORDERED: KETOROLAC 30 MG/ML VIAL IM STA (14:31)
[2021-02-22] MEDS ORDERED: IBUPROFEN 600 MG TABLET PO STA (15:02)
--- NOTE | 2021-02-22 15:03 | ED Physician Documentation ---
PD HPI ABD PAIN - Stated complaint Stated Complaint: FEMALE - Chief complaint Chief Complaint: Abd Pain - History obtained from History obtained from: Patient - Additional information Additional information: 35-year-old woman has been dealing with pelvic cramping more so in the last 4 days. Not necessarily associated with her menses. More recently has developed significant pelvic cramping over the last 4 days. Her menses are due and may be a week. She doubts the possibility of , her has had a vasectomy. She denies bleeding or discharge. Today around 1:00 was getting out of the shower and had severe right pelvic pain for about 5 minutes with clamminess and nausea. Review of Systems Constitutional: denies: Fever, Chills GI: reports: Nausea. denies: Vomiting, Constipation, Diarrhea : denies: Dysuria, Frequency PD PAST MEDICAL HISTORY - Past Medical History Cardiovascular: None Respiratory: Asthma - Past Surgical History Past Surgical History: Yes General: Appendectomy HEENT: Tonsil/Adenoidectomy - Present Medications Home Medications: Ambulatory Orders Medication Instructions Recorded Confirmed Albuterol 1 vial NEB Q6HR PRN 01/22/17 02/22/21 Cetirizine [ZyrTEC] 10 mg PO DAILY 09/05/19 02/22/21 Ipratropium [Atrovent] 0.5 mg INH Q6H #30 neb 09/05/19 02/22/21 - Allergies Allergies/Adverse Reactions: Allergies Allergy/AdvReac Type Severity Reaction Status Date / Time latex Allergy Unknown Verified 08/14/20 12:52 meperidine [From Demerol] Allergy Unknown Verified 08/14/20 12:52 adhesive AdvReac Unknown Verified 08/14/20 12:52 - Social History Does the pt smoke?: No Smoking Status: Never smoker Does the pt drink ETOH?: No Does the pt have substance abuse?: No - Immunizations Immunizations are current?: No PD ED PE NORMAL - Vitals Vital signs reviewed: Yes - General General: Alert and oriented X 3, No acute distress - Abdomen Abdomen: Normal bowel sounds, Soft, Other (Tender in the right pelvis without guarding or rebound. Note she is status post remote appendectomy.) - Back Back: No CVA TTP, No spinal TTP - Derm Derm: Normal color, Warm and dry - Neuro Neuro: Alert and oriented X 3, Normal speech Results - Vitals Vitals: Vital Signs - 24 hr 02/22/21 02/22/21 02/22/21 14:04 15:06 15:30 Temperature 36.8 C Heart Rate 84 76 86 Respiratory 16 16 16 Rate Blood Pressure 131/71 H 126/66 96/66 O2 Saturation 99 99 100 02/22/21 02/22/21 16:10 17:51 Temperature 37.1 C Heart Rate 89 65 Respiratory 16 16 Rate Blood Pressure 115/68 114/72 O2 Saturation 98 100 Oxygen O2 Source Room air - Labs Labs: Laboratory Tests 02/22/21 02/22/21 02/22/21 15:10 15:10 15:15 WBC 8.9 RBC 4.19 L Hgb 12.9 Hct 39.3 MCV 93.8 MCH 30.8 MCHC 32.8 RDW 12.6 Plt Count 314 MPV 10.3 Neut # (Auto) 4.3 Lymph # (Auto) 4.0 H [place] # (Auto) 0.5 Eos # (Auto) 0.1 Baso # (Auto) 0.0 Absolute Nucleated RBC 0.00 Nucleated RBC % 0.0 Sodium 140 Potassium 3.7 Chloride 102 Carbon Dioxide 29 Anion Gap 9.0 BUN 10 Creatinine 0.7 Estimated GFR (MDRD) 96 Glucose 101 H Calcium 9.6 Urine Color YELLOW Urine Clarity HAZY Urine pH 5.5 Ur Specific [place] 1.010 Urine Protein NEGATIVE Urine Glucose (UA) NEGATIVE Urine Ketones NEGATIVE Urine Occult Blood NEGATIVE Urine Nitrite NEGATIVE Urine Bilirubin NEGATIVE Urine Urobilinogen 0.2 (NORMAL) Ur Leukocyte Esterase SMALL H Urine RBC 0-5 Urine WBC 6-10 H Ur Squamous Epith Cells MANY Squamous H Urine Bacteria Many H Urine Culture Comments NOT INDICATED Urine HCG, Qual 02/22/21 15:15 WBC RBC Hgb Hct MCV MCH MCHC RDW Plt Count MPV Neut # (Auto) Lymph # (Auto) [place] # (Auto) Eos # (Auto) Baso # (Auto) Absolute Nucleated RBC Nucleated RBC % Sodium Potassium Chloride Carbon Dioxide Anion Gap BUN Creatinine Estimated GFR (MDRD) Glucose Calcium Urine Color Urine Clarity Urine pH Ur Specific [place] Urine Protein Urine Glucose (UA) Urine Ketones Urine Occult Blood Urine Nitrite Urine Bilirubin Urine Urobilinogen Ur Leukocyte Esterase Urine RBC Urine WBC Ur Squamous Epith Cells Urine Bacteria Urine Culture Comments Urine HCG, Qual NEGATIVE PD MEDICAL DECISION MAKING - ED course ED course: 35-year-old woman who had some mild pelvic pain which was severe for 5 minutes earlier today and has not recurred. Pain was easy to control with ibuprofen. Ovarian torsion is considered but no evidence of this on ultrasound, the small cyst she has on her right ovary would probably not be large enough to cause torsion. Departure - Departure Disposition: 01 Home, Self Care Clinical Impression: Pelvic pain Cyst of ovary Qualifiers: Laterality: right Qualified Code(s): N83.201 - Unspecified ovarian cyst, right side Condition: Good Record reviewed to determine appropriate education?: Yes Instructions: ED Cyst Ovarian Comments: You were seen today for pelvic pain, we found a small to moderate sized right ovarian cyst with some free fluid in your pelvis. Return for new or worsening symptoms or if pain is severe again. Otherwise follow-up with your physician and discuss the timing of repeat ultrasonography noting that she have a repeat ultrasound ordered in 2 weeks but as a general rule serial testing for ovarian cysts is done closer to the 6-week timeframe. Ibuprofen as needed for pain. Discharge Date/Time: 02/22/21 18:11
[2021-02-22 15:16] LABS: BASOPHILS % (AUTO) 0.5 %; EOSINOPHILS # (AUTO) 0.1 10^3/uL (0.0-0.7); EOSINOPHILS % (AUTO) 1.1 %; HCT - HEMATOCRIT 39.3 % (37.0-47.0); HGB - HEMOGLOBIN 12.9 g/dL (12.0-16.0); LYMPHOCYTES % (AUTO) 44.7 %; MEAN CORPUSCULAR HEMOGLOBIN 30.8 pg (27.0-31.0); MEAN CORPUSCULAR HGB CONC 32.8 g/dL (32.0-36.0); MEAN CORPUSCULAR VOLUME 93.8 fL (81.0-99.0); MEAN PLATELET VOLUME 10.3 fL (7.9-10.8); MONOCYTES # (AUTO) 0.5 10^3/uL (0.0-1.0); MONOCYTES % (AUTO) 5.4 %; NEUTROPHILS # (AUTO) 4.3 10^3/uL (1.5-6.6); NEUTROPHILS % (AUTO) 48.1 %; PLT - PLATELET COUNT 314 10^3/uL (130-450); RED BLOOD COUNT 4.19 10^6/uL (4.20-5.40); RED CELL DISTRIBUTION WIDTH 12.6 % (12.0-15.0); WHITE BLOOD COUNT 8.9 x10^3/uL (4.8-10.8)
[2021-02-22 15:21] LABS: BILIRUBIN,URINE NEGATIVE (NEGATIVE); GLUCOSE, URINE (UA) NEGATIVE (NEGATIVE); KETONES,URINE (UA) NEGATIVE (NEGATIVE); LEUKOCYTE ESTERASE, URINE SMALL (NEGATIVE); NITRITE,URINE NEGATIVE (NEGATIVE); OCCULT BLOOD,URINE NEGATIVE (NEGATIVE); PH,URINE 5.5 PH (5.0-7.5); PROTEIN,URINE NEGATIVE (NEGATIVE); UROBILINOGEN,URINE 0.2 (NORMAL) E.U./dL (NORMAL)
[2021-02-22 15:24] LABS: CALCIUM 9.6 mg/dL (8.5-10.3); CREATININE 0.7 mg/dL (0.4-1.0); POTASSIUM 3.7 mmol/L (3.5-5.0)
[2021-02-22 15:24] LABS: CLARITY,URINE HAZY (CLEAR); HCG UR QUAL NEGATIVE
[2021-02-22 15:31] LABS: RBC,URINE 0-5 /HPF (0-5)
[2021-02-22 15:32] LABS: BACTERIA,URINE Many /HPF (None Seen); SQUAMOUS EPITHELIAL CELL,UR MANY Squamous (<= Few)
[2021-02-22 17:52] VITALS: BP 114/72
--- NOTE | 2021-02-22 18:02 | Ultrasound Report ---
PROCEDURE: Pelvic w/Transvag+Doppler Comp INDICATIONS: R pelvic pain TECHNIQUE: Real-time scanning was performed of the pelvic organs, with image documentation. Additional endovagi nal scanning was necessary due to incomplete visualization of the adnexal and endometrial structures by transabdominal scanning. COMPARISON: Correlation is made with prior abdomen pelvis CT, 06/22/2020 FINDINGS: There is a mild amount of free pelvic fluid seen, which is considered to be within physiologic limits . Uterus: Uterus is normal in size at 8.6 x 4 x 5.9 cm. The endometrium measures 11 mm in combined th ickness. Ovaries: The right ovary measures 3.5 x 2.1 x 2.2 cm and the left ovary measures 2.6 x 2 x 1.5 cm. T he right ovary demonstrates a simple appearing dominant cystic follicle that measures 2.3 cm, which i s considered to be within physiologic limits. No significant ovarian abnormalities are seen. There a re less than 12 follicles seen on each side. No adnexal masses are seen. Normal-appearing arteria l waveforms are confirmed to each ovary. IMPRESSION: No significant pelvic ultrasound abnormality can be seen. Note: Concordant preliminary findings given by the architect manager upon the completion of the examination to Dr. Boyer at 5:50 PM on 02/22/2021. Reviewed by: Waldemar Buchanan MD on 02/22/2021 5:01 PM ANTWON Approved by: Waldemar Buchanan MD on 02/22/2021 5:01 PM ANTWON Station ID: [id number]
== END 2021-02-22 18:11 | disposition home or self-care (01) ==
LOC: ED 13:50
DX: R10.2 Pelvic and perineal pain (principal); N83.201 Unspecified ovarian cyst, right side
CPT/HCPCS: 36415; 76830; 76856; 80048; 81001; 81025; 85025; 93975; 99284; A9270; 87086

== ENCOUNTER 2021-10-21 16:43 | Emergency (ER) | payer OTHER ==
[2021-10-21 16:58] VITALS: BP 148/75
--- NOTE | 2021-10-21 17:42 | XRAY Report ---
PROCEDURE: Foot 3 View LT INDICATIONS: Trauma TECHNIQUE: 3 views of the foot were acquired. COMPARISON: None FINDINGS: Bones: No fractures or dislocations. No suspicious bony lesions. Soft tissues: No tibiotalar joint effusion. Achilles tendon appears normal. IMPRESSION: No acute fracture. No osseous lesion. If symptoms and/or clinical suspicion for pathology continue, f urther assessment with repeat plain films, or advanced imaging (e.g., CT, MRI, or bone scan) is recom mended for further assessment. Reviewed by: Mikal Luo MD on 10/21/2021 5:41 PM PST Approved by: Mikal Luo MD on 10/21/2021 5:41 PM PST Station ID: [id number]
--- NOTE | 2021-10-21 17:53 | ED Physician Documentation ---
PD HPI LOWER EXT INJURY - Stated complaint Stated Complaint: LT TOE PX - Chief complaint Chief Complaint: Ext Problem - History obtained from History obtained from: Patient - Additional information Additional information: About 3 weeks ago she was working out barefoot and bent her third toe. It was deformed and she immediately reduced it. But is having persistent pain. 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: Endometriosis : None HEENT: None Psych: None Musculoskeletal: None Derm: None - Past Surgical History Past Surgical History: Yes General: Appendectomy HEENT: Tonsil/Adenoidectomy - Present Medications Home Medications: Ambulatory Orders Medication Instructions Recorded Confirmed Albuterol 1 vial NEB Q6HR PRN 01/22/17 02/22/21 Cetirizine [ZyrTEC] 10 mg PO DAILY 09/05/19 02/22/21 Ipratropium [Atrovent] 0.5 mg INH Q6H #30 neb 09/05/19 02/22/21 - Allergies Allergies/Adverse Reactions: Allergies Allergy/AdvReac Type Severity Reaction Status Date / Time latex Allergy Unknown Verified 10/21/21 16:58 meperidine [From Demerol] Allergy Unknown Verified 10/21/21 16:58 adhesive AdvReac Unknown Verified 10/21/21 16:58 - Social History Does the pt smoke?: No Smoking Status: Never smoker Does the pt drink ETOH?: No Does the pt have substance abuse?: No - Immunizations Immunizations are current?: No PD ED PE NORMAL - Vitals Vital signs reviewed: Yes - General General: Alert and oriented X 3, No acute distress - Extremities Extremities: Other (Tender to the left third toe without deformity. Slight maceration on the other underside. No open areas.) - Neuro Neuro: Alert and oriented X 3, Normal speech Results - Vitals Vitals: Vital Signs - 24 hr 10/21/21 16:54 Temperature 36.4 C L Heart Rate 91 Respiratory 16 Rate Blood Pressure 148/75 H O2 Saturation 100 Oxygen O2 Source Room air PD MEDICAL DECISION MAKING - ED course ED course: Initial x-ray read was negative, there was an abnormality to my eye of the left third toe and I discussed this with the radiologist who feels that it is an enchondroma with possible pathologic fracture. Departure - Departure Disposition: 01 Home, Self Care Clinical Impression: Pathological fracture of toe Qualifiers: Pathology associated with fracture: other disease Encounter type: initial encounter Laterality: left Qualified Code(s): M84.675A - Pathological fracture in other disease, left foot, initial encounter for fracture Condition: Good Record reviewed to determine appropriate education?: Yes Instructions: ED Fx Toe Closed Comments: As discussed, it looks like you have what is called an enchondroma of the middle phalanx of the third left toe. This is an area where the bone never fully formed making it more likely that you could fracture. Since has been 3 weeks I expect you to still be in discomfort for 3 or maybe a few more weeks. You can tape the toes together or just wear very supportive shoes. Return for new or worsening symptoms. Tylenol or ibuprofen as needed for pain.
== END 2021-10-21 18:04 | disposition home or self-care (01) ==
LOC: ED 16:43
DX: M84.675A Pathological fracture in other disease, left foot, initial encounter for fracture (principal)
CPT/HCPCS: 99282; 99283

== ENCOUNTER 2022-03-29 15:36 | Outpatient (CLI) | payer OTHER ==
--- NOTE | 2022-03-29 17:56 | XRAY Report ---
PROCEDURE: Sacrum/Coccyx INDICATIONS: POSSIBLE COCCYX DISLOCATION. TECHNIQUE: 3 views of the sacrum and coccyx acquired. COMPARISON: None available at the time of dictation. FINDINGS: Bones: Corticated calcification along the superolateral aspect of the right hip likely represents deg enerative labral calcification versus os acetabuli. There is no acute fracture. Alignment is normal. Sacroiliac joints are unremarkable. Soft tissues: Visualized bowel gas pattern is normal. No suspicious soft tissue densities. IMPRESSION: No acute osseous abnormality. Reviewed by: Varun Hastings DO on 03/29/2022 4:54 PM ANTWON Approved by: Varun Hastings DO on 03/29/2022 4:54 PM ANTWON Station ID: [id number]
== END 2022-03-29 15:37 | disposition home or self-care (01) ==
LOC: DI 15:36
PROVIDERS: ATTEND Physician Assistant
DX: M54.50 Low back pain, unspecified (principal)

== ENCOUNTER 2022-07-24 17:27 | Emergency (ER) | payer OTHER ==
[2022-07-24] MEDS ORDERED: CETIRIZINE 10 MG TABLET PO STA (19:01)
[2022-07-24] MEDS ORDERED: predniSONE 20 MG TABLET PO STA (19:03)
--- NOTE | 2022-07-24 19:04 | ED Physician Documentation ---
History of Present Illness - Stated complaint Stated Complaint: FEMALE - Chief complaint Chief Complaint: General - History obtained from History obtained from: Patient - History of Present Illness Timing: Today Pain level max: 0 Pain level now: 0 - Additonal information Additional information: Patient is a 37-year-old female who presents to the emergency department with approximately 3 weeks of the vaginal itching. She states that this started After using K-Y jelly for lubricant. She states that she saw a provider who has been treating her for tinea cruris with topical cream. She states that does not help pain and that her itching has continued. She is not having any vaginal discharge. Nothing seems to make it better or worse. 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: Endometriosis : None HEENT: None Psych: None Musculoskeletal: None Derm: None - Past Surgical History Past Surgical History: Yes General: Appendectomy HEENT: Tonsil/Adenoidectomy - Present Medications Home Medications: Ambulatory Orders Medication Instructions Recorded Confirmed Cetirizine [ZyrTEC] 10 mg PO DAILY 09/05/19 10/21/21 Doxepin [SINEquan] 10 mg PO TID PRN #20 cap 07/24/22 predniSONE [Deltasone] 10 mg PO [id number] #42 tab 07/24/22 - Allergies Allergies/Adverse Reactions: Allergies Allergy/AdvReac Type Severity Reaction Status Date / Time latex Allergy Unknown Verified 07/24/22 17:39 meperidine [From Demerol] Allergy Unknown Verified 07/24/22 17:39 adhesive AdvReac Unknown Verified 07/24/22 17:39 - Social History Does the pt smoke?: No Smoking Status: Never smoker Does the pt drink ETOH?: No Does the pt have substance abuse?: No - Immunizations Immunizations are current?: No - POLST Patient has POLST: No PD ED PE NORMAL - Vitals Vital signs reviewed: Yes - General General: Alert and oriented X 3, No acute distress - Cardiac Cardiac: RRR - Respiratory Respiratory: No respiratory distress - Abdomen Abdomen: Soft, Non tender, Non distended - 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 No vesicles or pustules. Internal exam reveals scant bleeding, but no discharge.) - Derm Derm: Warm and dry - Neuro Neuro: Alert and oriented X 3 - Psych Psych: Normal mood, Normal affect Results - Vitals Vitals: Vital Signs - 24 hr 07/24/22 07/24/22 17:32 20:52 Temperature 37.0 C Heart Rate 89 73 Respiratory 16 14 Rate Blood Pressure 124/66 112/77 O2 Saturation 99 100 Oxygen O2 Source Room air - Labs Labs: Microbiology 07/24/22 18:53 Wet Prep - Final Genital - Vaginal Laboratory Tests 07/24/22 07/24/22 18:53 18:58 C. glabrata (PCR) NEGATIVE C. krusei (PCR) NEGATIVE Lola species DNA NEGATIVE Chlam trachomat DNA PCR NEGATIVE N.gonorrhoeae DNA (PCR) NEGATIVE T. vaginalis (PCR) TNP NEGATIVE Bact Vaginosis (PCR) NEGATIVE PD MEDICAL DECISION MAKING - ED course Complexity details: reviewed results, re-evaluated patient, considered differential, d/w patient ED course: Patient is a 37-year-old female who presents the emergency department with what appears to be a vulvar dermatitis. Likely secondary to topical lubricant use. Recommend that she follow-up with her doctor. Her wet mount, bacterial vaginitis panel and STD testing are negative. We will trial her on steroids to see if this improves her symptoms. We will also place her on doxepin for itching. Patient counseled regarding signs and symptoms for which I believe and urgent re-evaluation would be necessary. Patient with good understanding of and agreement to plan and is comfortable going home at this time This document was made in part using voice recognition software. While efforts are made to proofread this document, sound alike and grammatical errors may occur. Departure - Departure Disposition: 01 Home, Self Care Clinical Impression: Vulvar dermatitis Condition: Good Instructions: ED Dermatitis Contact Follow-Up: [facility] [Provider Group] Prescriptions: predniSONE [Deltasone] 10 mg PO [id number] #42 tab Doxepin [SINEquan] 10 mg PO TID PRN #20 cap PRN Reason: Itching Comments: You can try Zyrtec, Claritin or Benadryl at home as well for itching. You can try the doxepin, this often works better for itching. It can however make you drowsy, so do not drive or operate heavy machinery while taking the doxepin. The steroid should reduce the inflammation and itching as well. I would discontinue any creams as they may cause further irritation. Please return if you worsen. You may also make an appointment with [facility] if you are failing to improve. Your prescriptions were sent to [facility] Discharge Date/Time: 07/24/22 21:01
[2022-07-24] MEDS ORDERED: FLUCONAZOLE 100 MG TABLET PO STA (20:21)
[2022-07-24 20:54] VITALS: BP 112/77
[2022-07-24 21:13] LABS: BACTERIAL VAGINOSIS DNA NEGATIVE (NEGATIVE); CANDIDA GLABRATA DNA NEGATIVE (NEGATIVE); CANDIDA GROUP DNA NEGATIVE (NEGATIVE); CANDIDA KRUSEI DNA NEGATIVE (NEGATIVE); TRICHOMONAS VAGINALIS DNA NEGATIVE (NEGATIVE)
[2022-07-24 23:41] LABS: CHLAMYDIA TRACHOMATIS DNA NEGATIVE (NEGATIVE); NEISSERIA GONORRHOEAE DNA NEGATIVE (NEGATIVE)
== END 2022-07-24 21:01 | disposition home or self-care (01) ==
LOC: ED 17:27
DX: L30.8 Other specified dermatitis (principal)
CPT/HCPCS: 81514; 87210; 87491; 87591; 99282; 99283; A9270; J7512; 87661

== ENCOUNTER 2023-02-20 20:23 | Emergency (ER) | payer OTHER ==
--- NOTE | 2023-02-20 21:02 | ED Physician Documentation ---
PD HPI HEENT - Stated complaint Stated Complaint: LFT EAR PX - Chief complaint Chief Complaint: Heent - History obtained from History obtained from: Patient - Additional information Additional information: Patient is a 37-year-old female presenting for evaluation of a fullness sensation in her left ear that has been going on for months and decreased hearing. She is here with her son who is being evaluated for another condition so decided to also Have her ear checked today. No fever, cough, congestion, abnormal drainage.She has not tried anything for her symptoms. She states that she is allergic to [id number] ear wax softening medication. 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 : None HEENT: None Psych: None Musculoskeletal: None Derm: None - Past Surgical History Past Surgical History: Yes General: Appendectomy HEENT: Tonsil/Adenoidectomy - Present Medications Home Medications: Ambulatory Orders Medication Instructions Recorded Confirmed Cetirizine [ZyrTEC] 10 mg PO DAILY 09/05/19 02/20/23 Loratadine [Claritin] 10 mg PO DAILY 02/20/23 02/20/23 Montelukast [Singulair] 10 mg PO DAILY 02/20/23 02/20/23 - Allergies Allergies/Adverse Reactions: Allergies Allergy/AdvReac Type Severity Reaction Status Date / Time latex Allergy Unknown Verified 02/20/23 20:37 meperidine [From Demerol] Allergy Unknown Verified 02/20/23 20:37 adhesive AdvReac Unknown Verified 02/20/23 20:37 - Social History Does the pt smoke?: No Smoking Status: Never smoker Does the pt drink ETOH?: No Does the pt have substance abuse?: No - Immunizations Immunizations are current?: No - POLST Patient has POLST: No PD ED PE NORMAL - General General: Alert and oriented X 3, No acute distress, Well developed/nourished - HEENT HEENT: Atraumatic, Moist mucous membranes, Pharynx benign, Other (Left ear canal with significant amount of cerumen that was removed With plastic earwax speculum; TMs intact bilaterally with no signs of infection) - Neck Neck: Supple, no meningeal sign - Respiratory Respiratory: No respiratory distress - Derm Derm: Normal color - Neuro Neuro: Normal speech Results - Vitals Vitals: Vital Signs - 24 hr 02/20/23 02/20/23 20:35 21:12 Temperature 36.8 C Heart Rate 76 71 Respiratory 17 18 Rate Blood Pressure 112/56 L 125/70 O2 Saturation 100 99 Oxygen O2 Source Room air PD Medical Decision Making - ED course ED course: Patient with left ear complaints. Noted to have a large amount of cerumen. This was removed and patient is feeling much better. No signs of Ear infection.Patient counseled on concerning symptoms to return for. Departure - Departure Disposition: Home, Self Care Clinical Impression: Left ear impacted cerumen Condition: Stable Instructions: ED Earwax Removal Comments: You have earwax buildup In your left ear that was removed. There is still wax in both ear canals. I would recommend regular follow-up with your PCP or an ENT for earwax removal as you have stated that you are not able to utilize [id number] Eardrops to soften the wax. Discharge Date/Time: 02/20/23 21:13
[2023-02-20 21:14] VITALS: BP 125/70
== END 2023-02-20 21:13 | disposition home or self-care (01) ==
LOC: ED 20:23
DX: H61.22 Impacted cerumen, left ear (principal)
CPT/HCPCS: 69210; 99281

== ENCOUNTER 2023-09-13 07:05 | Outpatient (CLI) | payer OTHER | END 2023-09-13 07:06 | disposition EMS.NT | LOC: EMS 07:05 | DX: Z03.89 Encounter for observation for other suspected diseases and conditions ruled out (principal) ==